=== PATIENT | male | born 1970 | race Caucasian/White ===

== ENCOUNTER 2022-12-20 09:22 | Emergency (ER) | payer BC, OTHER ==
--- NOTE | 2022-12-20 09:29 | ERPHSYRPT ---
- History of Present Illness Time Seen by Provider: 12/20/22 09:29 Source: patient Exam Limitations: no limitations Physician History: This is a 52-year-old white male patient of Dr. Tovar out of [facility] and has a history of hypertension. Patient has been on lisinopril and amlodipine for approximately 10 years. Last evening, the patient noticed some dizziness. This morning, after taking his lisinopril and amlodipine at 5 AM, patient continued to have dizziness and took a second amlodipine because of his symptoms and measured high blood pressure. On arrival to the emergency department his systolic blood pressure was approximately 190 mmHg. Patient denies chest pain. Patient denies shortness of breath. He has no visual changes. He denies headaches. Timing/Duration: yesterday Severity: mild (To moderate) Associated Symptoms: other, No abdominal pain, No shortness of breath, No chest pain, No headaches Allergies/Adverse Reactions: No Known Drug Allergies Allergy (Unverified 12/20/22 09:27) Home Medications: Amlodipine Besylate 1 tab PO DAILY 12/20/22 [History] Lisinopril 20 mg [Zestril 20 MG] 1 tab PO DAILY 12/20/22 [History] Travel Risk - International Travel Have you traveled outside of the country in past 3 weeks: No - Coronavirus Screening Are you exhibiting any of the following symptoms?: No Close contact with a COVID-19 positive Pt in past 14-21 Days: No - Review of Systems Constitutional: No Symptoms Eyes: No Symptoms Ears, Nose, & Throat: No Symptoms Respiratory: No Symptoms Cardiac: No Symptoms Abdominal/Gastrointestinal: No Symptoms Genitourinary Symptoms: No Symptoms Musculoskeletal: No Symptoms Skin: No Symptoms Neurological: Dizziness Psychological: No Symptoms Endocrine: No Symptoms Hematologic/Lymphatic: No Symptoms Immunological/Allergic: No Symptoms All Other Systems: Reviewed and Negative - Past Medical History Pertinent Past Medical History: Yes - Nursing Vital Signs Nursing Vital Signs: Initial Vital Signs Temperature 98.3 F 12/20/22 09:29 Pulse Rate 87 12/20/22 09:29 Respiratory Rate 18 12/20/22 09:29 Blood Pressure 190/104 12/20/22 09:29 O2 Sat by Pulse Oximetry 96 12/20/22 09:29 Pain Scale Pain Intensity 0 - Physical Exam General Appearance: no apparent distress, alert, anxiety, obese Eye Exam: PERRL/EOMI, eyes nml inspection Ears, Nose, Throat Exam: normal ENT inspection, moist mucous membranes Neck Exam: normal inspection, non-tender, supple, full range of motion Respiratory Exam: normal breath sounds, lungs clear, airway intact, No chest tenderness, No respiratory distress Cardiovascular Exam: regular rate/rhythm, normal heart sounds, normal peripheral pulses Gastrointestinal/Abdomen Exam: soft, normal bowel sounds, No tenderness Rectal Exam: not done Back Exam: normal inspection, normal range of motion, No CVA tenderness, No vertebral tenderness Extremity Exam: normal inspection, normal range of motion, pelvis stable Neurologic Exam: alert, oriented x 3, cooperative, media planner / buyer II-XII nml as tested, normal mood/affect, nml cerebellar function, nml station & gait, sensation nml Skin Exam: normal color, warm, dry Lymphatic Exam: No adenopathy SpO2 Interpretation: normal O2 Delivery: Room Air - Course Nursing assessment & vital signs reviewed: Yes EKG Interpreted by Me: RATE (82), Sinus Rhythm, NORMAL AXIS, NORMAL INTERVALS, NORMAL QRS, NORMAL ST-T, Other (No acute ischemic changes on today's twelve-lead EKG.) Ordered Tests: Active Orders 24 hr Category Date Time Status Turbine Mechanic STAT Care 12/20/22 09:43 Active EKG-ER Only STAT Care 12/20/22 09:42 Active IV Insertion STAT Care 12/20/22 09:42 Active Pulse Oximetry (ED) STAT Care 12/20/22 09:42 Active HEAD WITHOUT CONTRAST [CT] Stat Exams 12/20/22 09:43 Completed CBC W DIFF Stat Lab 12/20/22 09:48 Completed CMP Stat Lab 12/20/22 09:48 Completed MAGNESIUM Stat Lab 12/20/22 09:48 Completed UA W/RFX UR CULTURE Stat Lab 12/20/22 09:47 Completed Medication Summary Generic Name Dose Route Start Last Admin Trade Name Freq PRN Reason Stop Dose Admin Enalaprilat 0.625 mg 12/20/22 11:03 Enalaprilat 2.5 Mg Injection IV 12/20/22 11:04 STAT ONE Discontinued Medications Generic Name Dose Route Start Last Admin Trade Name Freq PRN Reason Stop Dose Admin Enalaprilat 1.25 mg 12/20/22 09:42 12/20/22 09:49 Enalaprilat 2.5 Mg Injection IV 12/20/22 09:43 1.25 mg STAT ONE Administration Enalaprilat Confirm 12/20/22 09:48 Enalaprilat 2.5 Mg Injection Administered 12/20/22 09:49 Dose 2.5 mg IV .STK-MED ONE Lab/Rad Data: Laboratory Result Diagrams 12/20/22 09:48 12/20/22 09:48 Laboratory Results 12/20/22 12/20/22 12/20/22 Range/Units 09:48 09:48 09:47 WBC 6.3 (4.0-10.5) x10^3/uL RBC 4.97 (4.1-5.6) x10^6/uL Hgb 16.3 (12.5-18.0) g/dL Hct 46.7 (42-50) % MCV 94.0 (78-100) fL MCH 32.8 H (26-32) pg MCHC 34.9 (32-36) g/dL RDW 12.8 (11.5-14.0) % Plt Count 201 (150-450) x10^3/uL MPV 9.1 (7.5-11.0) fL Gran % 46.3 (36.0-66.0) % Immature Gran % (Auto) 0.5 H (0.00-0.4) % Nucleat RBC Rel Count 0.0 (0.00-0.1) % Eos # (Auto) 0.16 (0-0.5) x10^3/uL Immature Gran # (Auto) 0.03 (0.00-0.03) x10^3u/L Absolute Lymphs (auto) 2.06 (1.0-4.6) x10^3/uL Absolute Monos (auto) 1.06 (0.0-1.3) x10^3/uL Absolute Nucleated RBC 0.00 (0.00-0.01) x10^3u/L Lymphocytes % 33.0 (24.0-44.0) % Monocytes % 17.0 H (0.0-12.0) % Eosinophils % 2.6 (0.00-5.0) % Basophils % 0.6 (0.0-0.4) % Absolute Granulocytes 2.90 (1.4-6.9) x10^3/uL Basophils # 0.04 (0-0.4) x10^3/uL Sodium 143 (137-145) mmol/L Potassium 4.7 (3.5-5.1) mmol/L Chloride 106 (98-107) mmol/L Carbon Dioxide 25 (22-30) mmol/L Anion Gap 16.4 H (5-15) MEQ/L BUN 13 (9-20) mg/dL Creatinine 0.85 (0.66-1.25) mg/dL Estimated GFR > 60.0 ML/MIN Glucose 111 H (74-106) mg/dL Calcium 8.8 (8.4-10.2) mg/dL Magnesium 2.1 (1.6-2.3) mg/dL Total Bilirubin 0.90 (0.2-1.3) mg/dL AST 37 (17-59) U/L ALT 60 H (0-50) U/L Alkaline Phosphatase 108 (38-126) U/L Serum Total Protein 8.2 (6.3-8.2) g/dL Albumin 4.4 (3.5-5.0) g/dL Urine Color Yellow (Yellow) Urine Appearance Clear (Clear) Urine pH 8.0 (4.6-8.0) Ur Specific [place] 1.015 (1.005-1.030) Urine Protein Negative (Negative) Urine Glucose (UA) Negative (Negative) mg/dL Urine Ketones Negative (Negative) Urine Blood Negative (Negative) Urine Nitrite Negative (Negative) Urine Bilirubin Negative (Negative) Urine Urobilinogen 0.2 (0.2) mg/dL Ur Leukocyte Esterase Negative (Negative) U Hyaline Cast (Auto) NONE SEEN (0-2) /LPF Urine Microscopic RBC 0-2 (0-5) /HPF Urine Microscopic WBC 0-2 (0-5) /HPF Ur Epithelial Cells None Seen (None Seen) /HPF Urine Bacteria None Seen (None Seen) /HPF Urine Culture Reflexed NO (NO) - Progress Progress: improved, re-examined Progress Note: 12/20/22 11:05 CT scan of the head without contrast shows partial opacification of the mastoid air cells which is presumed to be inflammatory in origin. The remaining head CT without contrast is within normal limits. This patient's medical issue is 1 of moderate complexity. The level of complexity and the work-up performed is based on review of the patient's past medical history, review of the patient's medication list, review of the patient's drug allergy list, history present illness and physical findings on examination. The work-up includes CT scan of the head, twelve-lead EKG, CBC, CMP and urinalysis. The work-up results were reviewed by me. The blood pressure has improved. I will provide him with another small dose of Vasotec IV 0.625 mg prior to discharge to home. His dizziness has resolved. He is to f ollow-up with his primary care/prescriber today by phone to make arranges for follow-up appointment in the next few days. He is to keep a daily log of his blood pressure readings 3 times a day until he sees his prescriber. Counseled pt/family regarding: lab results, diagnosis, need for follow-up, rad results Medical Desision Making - Diagnostic Testing Diagnostic test were ordered, analyzed, and reviewed by me: Yes Radiological Interpretation: Reviewed by me, Teleradiologist Report - Risk of complications Low Risk: Low risk of morbidity from additional dx testing or treatment - Departure Departure Disposition: Home Clinical Impression: Hypertension, Dizziness Condition: Stable Critical Care Time: No Additional Instructions: Take your medication as prescribed. Call your primary care provider today to make arrangements for follow-up appointment in 3 days. In the meantime, keep a daily log of your blood pressure morning noon and night until you see your provider.
[2022-12-20] MEDS ORDERED: ENALAPRILAT 2.5 MG INJECTION IV ONE ×4 (09:42→11:06)
[2022-12-20 09:51] LABS: BASOPHIL % 0.6 % (0.0-0.4); Basophil (Absolute #) 0.04 x10^3/uL (0-0.4); Eosinophil % 2.6 % (0.00-5.0); Eosinophil (Absolute #) 0.16 x10^3/uL (0-0.5); Hematocrit 46.7 % (42-50); Hemoglobin 16.3 g/dL (12.5-18.0); IMMATURE GRAN # 0.03 x10^3u/L (0.00-0.03); IMMATURE GRAN % 0.5 % (0.00-0.4); Lymphocyte (Absolute #) 2.06 x10^3/uL (1.0-4.6); Mean Corpuscular Hemoglobin 32.8 pg (26-32); Mean Corpuscular Hgb Concent. 34.9 g/dL (32-36); Mean Platelet Volume 9.1 fL (7.5-11.0); Monocyte (Absolute #) 1.06 x10^3/uL (0.0-1.3); Neutrophil % 46.3 % (36.0-66.0); Platelet Count 201 x10^3/uL (150-450); Red Blood Count 4.97 x10^6/uL (4.1-5.6); Red Cell Distribution Width 12.8 % (11.5-14.0); White Blood Count 6.3 x10^3/uL (4.0-10.5)
[2022-12-20 09:58] LABS: Appearance Clear (Clear); Bacteria None Seen /HPF (None Seen); Bilirubin Negative (Negative); Blood Negative (Negative); Epithelial Cells None Seen /HPF (None Seen); Glucose, Urine Negative (Negative); Hyaline Casts NONE SEEN /LPF (0-2); Ketones Negative (Negative); Leukocyte Esterase Negative (Negative); Nitrite Negative (Negative); Protein,Urine Dip Negative (Negative); RBC 0-2 /HPF (0-5); Specific Gravity 1.015 (1.005-1.030); Urobilinogen 0.2 mg/dL (0.2); WBC 0-2 /HPF (0-5)
[2022-12-20 09:59] LABS: ADD URINE CULTURE? NO (NO)
[2022-12-20 10:05] LABS: ALBUMIN 4.4 g/dL (3.5-5.0); ALKALINE PHOSPHATASE 108 U/L (38-126); ANION GAP 16.4 MEQ/L (5-15); BLOOD UREA NITROGEN 13 mg/dL (9-20); CHLORIDE 106 mmol/L (98-107); Calcium 8.8 mg/dL (8.4-10.2); Carbon Dioxide 25 mmol/L (22-30); Creatinine 1 0.85 mg/dL (0.66-1.25); EST GLOMERULAR FILTRATION RATE > 60.0 ML/MIN; Glucose 111 mg/dL (74-106); MAGNESIUM 2.1 mg/dL (1.6-2.3); Potassium 4.7 mmol/L (3.5-5.1); SGOT/AST 37 U/L (17-59); SGPT/ALT 60 U/L (0-50); SODIUM 143 mmol/L (137-145); Total Protein 8.2 g/dL (6.3-8.2)
--- NOTE | 2022-12-20 10:38 | XRAY ---
Indication: Dizziness. Hypertension. Multiple contiguous axial images obtained through the head without contrast. Comparison: None Normal appearing brain parenchyma, ventricles, and bony calvarium. Partial opacification both mastoid air cells presumed inflammatory. Visualized paranasal sinuses are clear. Impression: Partial opacification both mastoid air cells presumed inflammatory. Remaining CT head without contrast exam is normal.
[2022-12-20 11:12] VITALS: BP 150/90; PULSE 78; O2SAT 94
== END 2022-12-20 11:33 | disposition home or self-care (01) ==
LOC: ED 09:22
DX: I10 Essential (primary) hypertension (principal); R42 Dizziness and giddiness; Z79.899 Other long term (current) drug therapy
CPT/HCPCS: 36000; 36415; 70450; 80053; 81001; 83735; 85025; 93005; 93041; 94760; 96374; 99284

== ENCOUNTER 2025-06-27 18:50 | Emergency (ER) | payer BC ==
--- NOTE | 2025-06-27 18:55 | ERPHSYRPT ---
- History of Present Illness Time Seen by Provider: 06/27/25 18:55 Source: patient, family Exam Limitations: no limitations Physician History: This is an 55-year-old white male patient who arrives for private vehicle and is a patient of Dr. 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 There was no loss of consciousness. Patient is not on any anticoagulation therapy. He did hear bilateral ear popping and felt dizzy. He was evaluated by the nurse at the scene and she was concerned that maybe there was some pupillary disparity. Patient arrives to the emergency department neurologically intact. His dizziness has resolved. Patient has a history of hyperlipidemia and hypertension. He has no chest pain. He has no shortness of breath. He has no neck pain. He has no nausea. He has not been vomiting. Occurred: just prior to arrival Severity: mild Head Injury Location: occipital Method of Injury: fell Loss of Consciousness: no loss of consciousness Associated Symptoms: denies symptoms Allergies/Adverse Reactions: No Known Drug Allergies Allergy (Verified 06/27/25 18:55) Home Medications: Amlodipine Besylate 1 tab PO DAILY 12/20/22 [History] Lisinopril 20 mg [Zestril 20 MG] 1 tab PO DAILY 12/20/22 [History] Atorvastatin Calcium 40 mg PO DAILY 06/27/25 [History] Carvedilol [Coreg ] 6.25 mg PO BID 06/27/25 [History] Hx Influenza Vaccination/Date Given: No Hx Pneumococcal Vaccination/Date Given: No Travel Risk - International Travel Have you traveled outside of the country in past 3 weeks: No - Emerging Infectious Disease Are you exhibiting symptoms associated with any current EIDs: No - Review of Systems Constitutional: No Symptoms Eyes: No Symptoms Ears, Nose, & Throat: No Symptoms Respiratory: No Symptoms Cardiac: No Symptoms Abdominal/Gastrointestinal: No Symptoms Genitourinary Symptoms: No Symptoms Musculoskeletal: No Symptoms Skin: No Symptoms Neurological: Dizziness, Headache Psychological: No Symptoms Endocrine: No Symptoms Hematologic/Lymphatic: No Symptoms Immunological/Allergic: No Symptoms All Other Systems: Reviewed and Negative - Past Medical History Pertinent Past Medical History: Yes - Past Surgical History Past Surgical History: Yes Neuro Surgical History: No Pertinent History Cardiac: No Pertinent History Respiratory: No Pertinent History Gastrointestinal: No Pertinent History Genitourinary: No Pertinent History Musculoskeletal: Orthopedic Surgery Male Surgical History: Vasectomy Other Surgical History: Left hand surgery - Social History Smoking Status: Never smoker Exposure to second hand smoke: No Drug Use: none Patient Lives Alone: No - Nursing Vital Signs Nursing Vital Signs: Initial Vital Signs Temperature 99.0 F 06/27/25 18:58 Pulse Rate 83 06/27/25 18:58 Respiratory Rate 18 06/27/25 18:58 Blood Pressure 180/111 06/27/25 18:58 O2 Sat by Pulse Oximetry 96 06/27/25 18:58 Pain Scale Pain Intensity 5 - Suzanne Coma Score Best Eye Response (Misenheimer): (4) open spontaneously Best Verbal Response (Misenheimer): (5) oriented Best Motor Response (Suzanne): (6) obeys commands Misenheimer Total: 15 - Physical Exam General Appearance: no apparent distress, alert Head Injury: contusions (Occipital region contusion without abrasion and without laceration) Eye Exam: bilateral eye: normal inspection, PERRL, EOMI ENT Exam: airway nml, other (Right TM slightly reddened) Neck Exam: supple, trachea midline, full range of motion, normal alignment, normal inspection Cardiovascular/Respiratory Exam: chest non-tender, no respiratory distress Gastrointestinal/Abdominal Exam: non tender Rectal Exam: not done Back Exam: normal inspection, normal range of motion, No CVA tenderness, No vertebral tenderness Extremity Exam: non-tender, normal range of motion, normal inspection, no calf tenderness, no pedal edema, pelvis stable Mental Status Exam: alert, oriented x 3, cooperative business analytics specialist Exam: normal hearing, normal speech, PERRL, tongue midline Coordination/Gait Exam: normal gait, normal cerebellar function Motor/Sensory Exam: no motor deficit, no sensory deficit Skin Exam: normal color, warm, dry, ecchymosis (Mild with mild contusion in the occipital region where the patient hit his head) Lymphatic Exam: No adenopathy SpO2 Interpretation: normal O2 Delivery: Room Air - Course Nursing assessment & vital signs reviewed: Yes Ordered Tests: Active Orders 24 hr Category Date Time Status HEAD WITHOUT CONTRAST [CT] Stat Exams 06/27/25 19:15 Taken Medication Summary Discontinued Medications Generic Name Dose Route Start Last Admin Trade Name Freq PRN Reason Stop Dose Admin Prednisone 20 mg 06/27/25 20:54 Prednisone 20 Mg Tablet PO 06/27/25 20:55 STAT ONE - Progress Progress: improved, re-examined Progress Note: 06/27/25 20:14 My medical decision making and the assignment of low complexity of this patient's medical issue today is based on review the patient's past medical history, reviewed the patient's medication list, reviewed patient drug allergy list, history present illness and physical findings on examination. The workup in this patient includes CT scan of the head without contrast. Differential diagnosis includes but is not limited to fall injury, contusion of occipital scalp, abrasion of occipital scalp, laceration of occipital scalp 06/27/25 20:[address] scan of the head without contrast was interpreted by the radiologist and I reviewed the impression. The impression states new opacification right middle ear. Right mastoid air cells presumed inflammatory Counseled pt/family regarding: diagnosis, need for follow-up, rad results Medical Desision Making - Independent Historian Additional History obtained from: Spouse - Diagnostic Testing Diagnostic test were ordered, analyzed, and reviewed by me: Yes Radiological Interpretation: Reviewed by me, Teleradiologist Report - Risk of complications Low Risk: Low risk of morbidity from additional dx testing or treatment - Departure Departure Disposition: Home Clinical Impression: Fall with no significant injury, Contusion of occipital region of scalp, Right otitis media Condition: Stable Critical Care Time: No Referrals: VINICIUS TOVAR JR [Primary Care Provider, ORTHOPEDICS] - Follow up/PCP as directed Additional Instructions: Ice pack to tender area 3 times a day for the next 3 days. Use Tylenol and ibuprofen for pain control if there are no contraindications to do so. Return to the emergency department if there are signs of increased headache, intractable vomiting or signs of confusion. Do not take any sedating medication for the next 24 hours. Call your primary care provider tomorrow, 06/28/2025 to make them aware of your injury and to schedule a follow-up appointment to be seen in the next 5 to 7 days. Take your blood pressure and cholesterol medication as prescribed Prescriptions: Amoxicillin/Potassium Clav [Augmentin 500-125 Tablet] 1 each PO TID 5 Days #15 tablet Prednisone 10 mg [Deltasone 10 mg] 10 mg PO BID #8 tablet
[2025-06-27 18:59] VITALS: TEMP 99
[2025-06-27 20:06] VITALS: RESP 18
[2025-06-27 21:03] VITALS: BP 166/97; PULSE 79; O2SAT 94
[2025-06-27] MEDS ORDERED: MOTRIN 600 MG ONE (21:03)
[2025-06-27] MEDS ORDERED: DELTASONE 20 MG ONE (21:04)
[2025-06-27] MEDS ORDERED: Augmentin 500-125 Tablet ONE (21:04)
[2025-06-27] MEDS ORDERED: TYLENOL 325 MG ONE (21:04)
[2025-06-27] MEDS: Augmentin 500-125 Tablet PO ONE (21:05)
[2025-06-27] MEDS: MOTRIN 600 MG PO ONE (21:06)
[2025-06-27] MEDS: TYLENOL 325 MG PO ONE (21:06)
[2025-06-27] MEDS: DELTASONE 20 MG PO ONE (21:06)
--- NOTE | 2025-06-28 08:41 | XRAY ---
Indication: Pain following fall. Multiple contiguous axial images obtained through the head without contrast. Comparison: December 20, 2022 Normal appearing brain parenchyma, ventricles, and bony calvarium for patient's age. New near complete opacification right mastoid air cells and lesser degree right middle ear presumed inflammatory. Remaining paranasal sinuses and left mastoid air cells are clear. Impression: Opacification right middle ear and right mastoid air cells presumed inflammatory. Remaining CT head without contrast continues to be normal.
== END 2025-06-27 21:13 | disposition home or self-care (01) ==
LOC: ED 18:50
DX: S00.03XA Contusion of scalp, initial encounter (principal); W01.0XXA Fall on same level from slipping, tripping and stumbling without subsequent striking against object, initial encounter; Y93.02 Activity, running; Y92.310 Basketball court as the place of occurrence of the external cause; H66.91 Otitis media, unspecified, right ear; I10 Essential (primary) hypertension; Z79.52 Long term (current) use of systemic steroids; Z79.899 Other long term (current) drug therapy